=== PATIENT | male | born 1950 | race Caucasian/White ===

== ENCOUNTER → 2017-10-03 | Outpatient (CLI) | payer BC ==
[~2017-10-03] MED LIST: MULT-506 PO; OXYC-57 PO; [UNRECOGNIZED DRUG - OTHER]
--- NOTE | 2017-10-03 09:01 | DIAGNOSTIC IMAGING REPORT ---
ABDOMEN FOR HERNIA CLINICAL HISTORY: 67 years-old Male presenting with R19.09 Groin swellingAttention to right inguinal area to evaluat. TECHNIQUE: Real-time grayscale Doppler ultrasound imaging of the right inguinal region was performed for a focused evaluation at the site of clinical concern. Color Doppler ultrasound imaging was also performed. COMPARISON: None. FINDINGS: Several benign appearing inguinal lymph nodes evident. Additionally, an apparent 5 mm peritoneal defect with herniated isoechoic material compatible with fat evident. No associated fluid or hyperemia. This was reducible with sonographic probe compression. IMPRESSION: 1. Suspected reducible fat-containing right inguinal hernia. Electronically signed by: Mustapha Haji M.D. 10/03/2017 9:00 AM Dictated Date/Time: 10/03/2017 8:58 AM
== END | disposition home or self-care (01) ==
LOC: C.ULTR 08:15
PROVIDERS: ATTEND Nurse Practitioner Family
DX: R19.09 Other intra-abdominal and pelvic swelling, mass and lump (principal)

== ENCOUNTER 2017-10-12 07:56 | Day surgery (SDC) | payer BC ==
[2017-10-10 13:01] VITALS: BMI 22.0
--- NOTE | 2017-10-10 13:32 | PAT Medication Instructions ---
Service Date Oct 10, 2017. Current Home Medication List Multivitamin (Multivitamin), 1 TAB PO QAM Medication Instructions For Your Scheduled Surgery - Hold the following medications the morning of surgery: Multivitamin (Multivitamin), 1 TAB PO QAM If you have any questions please call us at [phone] or [phone] or [phone]
--- NOTE | 2017-10-10 14:08 | DIAGNOSTIC IMAGING REPORT ---
CHEST 2 VIEWS ROUTINE CLINICAL HISTORY: 67 years-old Male presenting with preoperative assessment. TECHNIQUE: PA and lateral views of the chest were obtained. COMPARISON: 04/06/2010. FINDINGS: Atherosclerosis of the aortic arch. Cardiac silhouette normal in size. Mild hyperinflation. Lungs and pleural spaces clear. Degenerative changes of the thoracic spine. Surgical clip projects over the left upper quadrant. IMPRESSION: 1. Hyperinflation could relate to inspiratory effort or suggest underlying emphysema. No acute cardiopulmonary disease. Electronically signed by: Mustahpa Haji M.D. 10/10/2017 2:06 PM Dictated Date/Time: 10/10/2017 2:05 PM
[2017-10-10 14:11] LABS: BASO % 0.5 %; BASO ABS # 0.04 K/uL (0-0.2); EOS % 1.9 %; EOS ABS # 0.14 K/uL (0-0.5); HEMATOCRIT 43.1 % (42-52); HEMOGLOBIN 15.3 g/dL (14.0-18.0); IG# 0.02 K/uL (0.00-0.02); LYMPH % 28.2 %; LYMPH ABS # 2.12 K/uL (1.2-3.4); MEAN CELL VOLUME 93.5 fL (80-100); MEAN CORPUSCULAR HEMOGLOBIN 33.2 pg (25-34); MEAN CORPUSCULAR HGB CONC 35.5 g/dl (32-36); MEAN PLATELET VOLUME 9.3 fL (7.4-10.4); MONO % 5.2 %; MONO ABS # 0.39 K/uL (0.11-0.59); NEUT % 63.9 %; PLATELET COUNT 202 K/uL (130-400); RED CELL DISTRIBUTION WIDTH CV 14.1 % (11.5-14.5); RED CELL DISTRIBUTION WIDTH SD 48.1 fL (36.4-46.3); WHITE BLOOD COUNT 7.51 K/uL (4.8-10.8)
[2017-10-10 14:21] LABS: ALT/SGPT 26 U/L (12-78); BLOOD UREA NITROGEN 17 mg/dl (7-18); CARBON DIOXIDE 27 mmol/L (21-32); CREATININE 1.19 mg/dl (0.60-1.40); GLUCOSE 116 mg/dl (70-99); POTASSIUM 4.3 mmol/L (3.5-5.1); SODIUM 139 mmol/L (136-145)
[2017-10-10 14:24] LABS: ALKALINE PHOSPHATASE 100 U/L (45-117); AST/SGOT 21 U/L (15-37); TOTAL PROTEIN 6.7 gm/dl (6.4-8.2)
[~2017-10-12] VITALS: Ht 158.8 cm; Wt 56.8 kg
[~2017-10-12 07:56] MED LIST changes: +CLINDAMYCIN 600 MG/54 ML D5W IV SCH; +LACTATED RINGER'S 1000ML 1,000 ML IV SCH; -OXYC-57 PO; -[UNRECOGNIZED DRUG - OTHER]
[2017-10-12] MEDS ORDERED: OXYC-57 PO (08:09)
--- NOTE | 2017-10-12 08:10 | Discharge Instructions ---
Discharge Instructions Date of Service Oct 12, 2017. Visit Reason for Visit: Right Inguinal Hernia Discharge Discharge Diagnosis / Problem: hernia repair Discharge Goals Goal(s): Decrease discomfort Activity Recommendations Activity Limitations: as noted below Lifting Limitations: no more than 10 pounds Shower/Bathe: no limitations Driving or Machine Use: when pain free Anesthesia . Post Anesthesia Instructions: If you have had General Anesthesia or IV Sedation: * Do not drive today. * Resume driving when surgeon permits. * Do not make important decisions or sign legal documents today. * Call surgeon for: 1. Temperature elevations greater than 101 degrees F. 2. Uncontrollable pain. 3. Excessive bleeding. 4. Persistent nausea and vomiting. 5. Medication intolerance (nausea, vomiting or rash). * For nausea and vomiting use only clear liquids such as: tea, soda, bouillon until nausea subsides, then gradually increase diet as tolerated. * If you have any concerns or questions, call your surgeon's office. If physician is unavailable and it is an emergency, call 911 or go to the nearest emergency room. . Instructions / Follow-Up Instructions / Follow-Up Dr. Hutchins in 1-2 weeks as planned, call [phone] if you have any questions or need to schedule an appt Diet Recommendations Recommended Home Diet: no limitations Pending Studies Studies pending at discharge: no Medical Emergencies . Who to Call and When: Medical Emergencies: If at any time you feel your situation is an emergency, please call 911 immediately. . Non-Emergent Contact Non-Emergency issues call your: Surgeon Call Non-Emergent contact if: you have a fever, temperature is above 101.5, your pain is not controlled, you have any medication questions . . "Provider Documentation" section prepared by Petros Holm. .
[2017-10-12] MEDS ORDERED: FENTANYL CITRATE INJ 50 MCG/1 ML 2 ML VIAL IV PRN (08:15)
[2017-10-12] MEDS ORDERED: NALOXONE HCL 0.4 MG/1 ML VIAL/CARP IV PRN (08:15)
[2017-10-12] MEDS ORDERED: HYDROmorphone INJ 2 MG/ML SYR/VIAL IV PRN (08:15)
[2017-10-12] MEDS ORDERED: EpHEDrine SULFATE INJ 50 MG/ML AMP IV PRN (08:15)
[2017-10-12] MEDS ORDERED: ATROPINE SULFATE 0.1 MG/ML 5ML SYR IV PRN (08:15)
[2017-10-12] MEDS ORDERED: LABETALOL HCL IV 5 MG/ML 20ML IV PRN (08:15)
[2017-10-12] MEDS ORDERED: MEPERIDINE HCL 25 MG/ML CARP IV PRN (08:15)
[2017-10-12] MEDS ORDERED: ONDANSETRON INJ 2 MG/ML 2 ML VIAL IV PRN ×2 (08:15→11:15)
[2017-10-12] MEDS ORDERED: PHENYLEPHRINE 100MCG/ML 5ML SYR IV PRN (08:15)
[2017-10-12] MEDS ORDERED: FLUMAZENIL 0.1 MG/1 ML 10 ML VIAL IV PRN (08:15)
[2017-10-12 08:35] VITALS: BP 145/80; PULSE 65; TEMP 37; O2SAT 97; Ht 158.8 cm; Wt 56.8 kg
[2017-10-12] MEDS ORDERED: GLYCOPYRROLATE INJ 0.2 MG/ML VIAL ONE (09:07)
[2017-10-12] MEDS ORDERED: LIDOCAINE HCL 2% 2 ML VIAL (20MG/ML) ONE (09:07)
[2017-10-12] MEDS ORDERED: DEXAMETHASONE SOD INJ 4 MG/ML VIAL ONE (09:07)
[2017-10-12] MEDS ORDERED: ROCURONIUM BROMIDE 10 MG/ML 5 ML VIAL IV ONE (09:07)
[2017-10-12] MEDS ORDERED: ONDANSETRON INJ 2 MG/ML 2 ML VIAL ONE (09:07)
[2017-10-12] MEDS ORDERED: PROPOFOL IV EMULSION 10 MG/ML 20 ML VIAL IV ONE (09:07)
[2017-10-12] MEDS ORDERED: NEOSTIGMINE METHYLSULFATE 5 MG/5 ML SYR ONE (09:07)
[2017-10-12] MEDS ORDERED: MIDAZOLAM HCL 1 MG/ML 2ML VIAL ONE (09:08)
[2017-10-12] MEDS ORDERED: FENTANYL CITRATE INJ 50 MCG/1 ML 2 ML VIAL ONE ×3 (09:08→11:18)
--- NOTE | 2017-10-12 09:18 | History & Physical Bridge Note ---
H&P Re-Evaluation Bridge Note: I have examined the patient, reviewed the History & Physical and in the interval since the performance of the History & Physical I have noted the following changes of clinical significance: No changes noted
[2017-10-12] MEDS ORDERED: BUPIVACAINE 0.5 % 5 MG/1 ML MPF 30ML VIAL ONE (09:34)
[2017-10-12] MEDS ORDERED: SCOPOLAMINE 1.5 MG TDSY TD ONE (09:44)
--- NOTE | 2017-10-12 11:01 | [facility] Post Operative Brief Note ---
Immediate Operative Summary Operative Date Oct 12, 2017. Pre-Operative Diagnosis Right Inguinal Hernia Post-Operative Diagnosis Same as Preop Procedure(s) Performed Right Laparoscopic Inguinal Hernia Repair wt Mesh Surgeon Dr. Hutchins Stock Layer Surgeon(s) Petros Holm PA-C Estimated Blood Loss 5 ml Findings Consistent with Post-Op Diagnosis Indirect right inguinal hernia Specimens None per Surgeon Drains None Anesthesia Type General Complication(s) none Disposition Accompanied Pt To Recover: no Disposition: Recovery Room / PACU
--- NOTE | 2017-10-12 11:05 | [facility] Operative Report ---
Operative Report Operative Date Oct 12, 2017. Pre-Operative Diagnosis Right Inguinal Hernia Post-Operative Diagnosis Indirect right inguinal hernia Procedure(s) Performed Laparoscopic right inguinal hernia repair with mesh Surgeon Dr. Hutchins Legal Administrator Surgeon(s) Petros Holm PA-C Estimated Blood Loss 5 ml Findings Indirect right inguinal hernia. No left inguinal hernia. Pro-transit bus driver mesh placed. Specimens None per Surgeon Drains None Anesthesia GETA Complication(s) None Disposition Recovery Room / PACU Indications 67-year-old otherwise healthy male with symptomatic right inguinal hernia, plan for laparoscopic right anal hernia repair, possible left. The risks of the procedure were discussed, all questions were answered, and the patient agreed to proceed with surgery as planned. Description of Procedure The patient was properly identified, consented, and taken to the operating room where he was placed in the supine position. General endotracheal anesthesia was induced. SCDs and a safety belt were placed. A naranjo catheter was placed. Preoperative antibiotics were administered. The patient's groins and abdomen were prepped and draped in the standard sterile fashion. Surgical timeout was performed and all parties were in agreement that this was the correct patient and procedure to be performed and we continued as planned. A transverse infraumbilical incision was made to the left of midline with electrocautery and deepened down to the fascia with blunt dissection. A transverse incision was made in the anterior rectus sheath on the left. The rectus muscle was pulled laterally exposing the posterior rectus sheath. A large Julianne was used to bluntly dissect the preperitoneal space down to the pubic symphysis. This was then replaced with a laparoscopic preperitoneal dissection balloon, which was inflated under direct visualization and held in place for approximately 30 seconds. This was then removed and the preperitoneal space was insufflated with carbon dioxide which the patient tolerated without incident. Two 5 mm ports were then placed in the midline. Dissection started on the right, beginning laterally at the anterior superior iliac spine. Alexander's ligament was then dissected medially. The cord structures were circumferentially dissected. A moderate sized indirect hernia was noted. It was dissected away from the cord structures. A small tear was created in the peritoneum of the hernia sac, and this was closed with 5 mm clips. The contralateral side was then dissected in a similar manner, and no inguinal hernia was noted. Progrip mesh was placed on the right and covered the direct, indirect, and femoral spaces. The mesh was held in place, the ports were removed, and the space was allowed to collapse. Local anesthetic was injected at the incision sites, and in proximity to the right ilioinguinal nerve. The anterior rectus sheath fascia was closed with 0 Vicryl suture. The skin of all port sites were closed with 4- 0 Monocryl subcuticular suture, and Dermabond was placed over the incisions. The patient was extubated in the operating room and taken to the PACU for recovery without apparent incident. Any air in the scrotum was reduced, and the testicles were confirmed to be in the scrotum. All sponge, instrument, and needle counts were correct at the conclusion of the procedure. The patient tolerated the procedure well. The physician's recreational assistant was present and scrubbed for the entirety of the case. He was essential in positioning the patient, prepping and draping, retraction and exposure, driving the laparoscope, closure the incisions, and placement of the dressings. I attest to the content of the Intraoperative Record and any orders documented therein. Any exceptions are noted below.
[2017-10-12] MEDS ORDERED: LACTATED RINGER'S 1000ML 1,000 ML IV SCH (11:10)
[2017-10-12] MEDS ORDERED: OXYCODONE/ACETAMINOPHEN 5-325 TAB PO PRN (11:15)
[2017-10-12] MEDS ORDERED: MoRPHine SULFATE 2 MG/ML CARP IV PRN (11:15)
--- NOTE | 2017-10-12 11:49 | Anesthesiology Progress Note ---
Anesthesia Post Op Note Date & Time Oct 12, 2017 at 11:48 Vital Signs Pain Intensity: 1 Vital Signs Past 12 Hours Date Time Temp Pulse Resp B/P (MAP) Pulse Ox O2 Delivery O2 Flow Rate FiO2 10/12/17 11:40 36.2 60 18 139/76 96 Room Air 10/12/17 11:30 59 20 152/85 95 Room Air 10/12/17 11:20 57 20 143/96 100 Oxymask 3 10/12/17 11:10 36.6 65 20 157/96 100 Oxymask 10 10/12/17 08:35 37 65 16 145/80 (101) 97 Room Air Notes Mental Status: alert / awake / arousable, participated in evaluation Pt Amnestic to Procedure: Yes Nausea / Vomiting: adequately controlled Pain: adequately controlled Airway Patency, RR, SpO2: stable & adequate BP & HR: stable & adequate Hydration State: stable & adequate Anesthetic Complications: no major complications apparent
[2017-10-12 11:55] VITALS: BP 121/77; PULSE 56; TEMP 36.6; O2SAT 97
[2017-10-12 12:24] VITALS: BP 120/67; PULSE 65; O2SAT 93
[2017-10-12 12:55] VITALS: BP 114/69; PULSE 67; TEMP 36.5; O2SAT 95
== END 2017-10-12 13:35 | disposition home or self-care (01) ==
LOC: C.ACU 07:56
PROVIDERS: ATTEND Surgery
DX: K40.90 Unilateral inguinal hernia, without obstruction or gangrene, not specified as recurrent (principal); M19.90 Unspecified osteoarthritis, unspecified site; Z98.52 Vasectomy status; Z98.818 Other dental procedure status; Z88.0 Allergy status to penicillin; F17.290 Nicotine dependence, other tobacco product, uncomplicated; Z83.3 Family history of diabetes mellitus; Z82.3 Family history of stroke